=== PATIENT | female | born 1995 | race Caucasian/White ===

== ENCOUNTER 2024-10-19 13:17 | Emergency (ER) | payer BC, MEDICAID ==
[2024-10-19 14:12] VITALS: BP 120/81; PULSE 87
== END 2024-10-19 14:01 | disposition home or self-care (01) ==
LOC: KA.ED 13:17
DX: M19.041 Primary osteoarthritis, right hand (principal); G61.0 Guillain-Barre syndrome; Z86.69 Personal history of other diseases of the nervous system and sense organs; Z88.1 Allergy status to other antibiotic agents; Z88.5 Allergy status to narcotic agent; Z88.8 Allergy status to other drugs, medicaments and biological substances; Z91.030 Bee allergy status; Z79.899 Other long term (current) drug therapy; Z90.49 Acquired absence of other specified parts of digestive tract
CPT/HCPCS: 73130-RT; 99283; 99284

== ENCOUNTER 2024-10-31 11:39 | Emergency (ER) | payer BC, MEDICAID ==
[2024-10-31] MEDS ORDERED: Sodium Chloride 0.9% 10 ML Syringe FLUSH PRN (12:00)
[2024-10-31 12:19] LABS: BASOPHILS ABSOLUTE AUTO 0.05 10^3/uL (0.00-0.10); BASOPHILS PERCENT AUTO 0.6 % (0.0-1.0); EOSINOPHILS ABSOLUTE AUTO 0.18 10^3/uL (0.10-0.30); EOSINOPHILS PERCENT AUTO 2.1 % (1.0-3.0); HEMATOCRIT 45.3 % (37.0-47.0); HEMOGLOBIN 14.8 g/dL (12.0-16.0); IMMATURE GRAN ABSOLUTE AUTO 0.07 10^3/uL (0.00-0.04); IMMATURE GRAN PERCENT AUTO 0.8 % (0.0-0.4); LYMPHOCYTES ABSOLUTE AUTO 3.54 10^3/uL (1.00-4.00); MEAN CORPUSCULAR HEMOGLOBIN 26.9 pg (27.0-31.0); MEAN CORPUSCULAR HGB CONC 32.7 g/dL (32.0-36.0); MEAN CORPUSCULAR VOLUME 82.4 fL (82.0-92.0); MEAN PLATELET VOLUME 10.7 fL (7.4-10.4); MONOCYTES ABSOLUTE AUTO 0.71 10^3/uL (0.10-0.80); MONOCYTES PERCENT AUTO 8.2 % (2.0-8.0); NEUTROPHILS ABSOLUTE AUTO 4.09 10^3/uL (2.50-7.00); NEUTROPHILS PERCENT AUTO 47.3 % (50.0-70.0); PLATELET COUNT,PLT 213 10^3/uL (150-400); RED CELL DISTRIBUTION WIDTH 13.8 % (11.5-14.5); WHITE BLOOD CELL COUNT,WBC 8.64 10^3/uL (5.00-10.00)
[2024-10-31 12:29] LABS: APPEARANCE,URINE SLIGHTLY CLOUDY (CLEAR); BILIRUBIN,URINE NEGATIVE (NEGATIVE); COLOR,URINE YELLOW (YELLOW); GLUCOSE,URINE NEGATIVE (NEGATIVE); KETONES,URINE NEGATIVE (NEGATIVE); LEUKOCYTE ESTERASE,URINE TRACE (NEGATIVE); NITRITE,URINE POSITIVE (NEGATIVE); OCCULT BLOOD,URINE NEGATIVE (NEGATIVE); PH,URINE 6.5 (5.0-9.0); PROTEIN,URINE NEGATIVE (NEGATIVE); UROBILINOGEN,URINE 0.2 E.U./dL (0.2-1.0)
[2024-10-31 12:35] LABS: ALBUMIN 3.68 g/dL (3.40-5.00); ANION GAP 12.7 mmol/L (5-15); BILIRUBIN TOTAL 0.4 mg/dL (0.2-1.0); C-REACTIVE PROTEIN 2.8 mg/dL (0.00-0.50); CALCIUM 9.4 mg/dL (8.7-10.3); CREATININE 0.89 mg/dL (0.51-1.17); EST CRCL DRUG DOSING (CG) 90.7 mL/min; POTASSIUM,K 4.7 mmol/L (3.5-5.1)
[2024-10-31 12:35] LABS: BACTERIA,URINE MODERATE /HPF (NONE TO FEW); EPITHELIAL CELLS,URINE FEW /LPF; RBC,URINE 0-5 /HPF (0-5); WBC,URINE 20-30 /HPF (0-5)
[2024-10-31] MEDS: Sodium Chloride 0.9% 1,000 ML IV ONE (12:53)
[2024-10-31] MEDS: Metoclopramide 10 MG Tab PO ONE (13:18)
[2024-10-31] MEDS: Sulfamethoxazole/Trimethoprim 800-160 MG Tab PO ONE (13:18)
[2024-10-31 13:54] VITALS: BP 120/75; PULSE 94
[2024-10-31] MEDS ORDERED: Sulfamethoxazole/Trimethoprim 800-160 MG Tab PO ONE (13:58)
== END 2024-10-31 14:15 | disposition home or self-care (01) ==
LOC: KA.ED 11:39
DX: N30.00 Acute cystitis without hematuria (principal); Z87.19 Personal history of other diseases of the digestive system; Z86.16 Personal history of COVID-19; Z90.49 Acquired absence of other specified parts of digestive tract; Z79.899 Other long term (current) drug therapy; Z88.5 Allergy status to narcotic agent; Z91.030 Bee allergy status; Z88.8 Allergy status to other drugs, medicaments and biological substances; Z88.1 Allergy status to other antibiotic agents
CPT/HCPCS: 36415; 74177; 80053; 81001; 82150; 83605; 83690; 85025; 86140; 87086; 87088; 99284; A9270-GY; J7030

== ENCOUNTER 2024-11-16 08:42 | Day surgery (SDC) | payer BC, MEDICAID ==
[2024-11-16] MEDS ORDERED: Sodium Chloride 0.9% 10 ML Syringe FLUSH PRN (09:00)
[2024-11-16] MEDS: Lactated Ringers 1,000 ML IV SCH (09:14)
[2024-11-16] MEDS ORDERED: Midazolam 1 MG/ML 2 ML SDV ONE (09:36)
[2024-11-16] MEDS ORDERED: Propofol 200 MG/20 ML SDV ONE (09:36)
[2024-11-16 13:12] VITALS: BP 112/66; PULSE 87
== END 2024-11-16 11:58 | disposition home or self-care (01) ==
LOC: KA.SDS 08:42
PROVIDERS: ATTEND Family Medicine
DX: K64.8 Other hemorrhoids (principal); Z91.030 Bee allergy status; Z88.5 Allergy status to narcotic agent; Z88.8 Allergy status to other drugs, medicaments and biological substances
CPT/HCPCS: 00811; 81025; J2250; J2704; J7120

== ENCOUNTER 2024-12-20 21:42 | Emergency (ER) | payer BC, MEDICAID ==
[2024-12-20] MEDS ORDERED: Sodium Chloride 0.9% 10 ML Syringe FLUSH PRN (21:56)
[2024-12-20] MEDS: Sodium Chloride 0.9% 1,000 ML IV ONE (22:11)
[2024-12-20] MEDS: Promethazine 25 MG in Sodium Chloride 0.9% 100 ML IV ONE (22:12)
[2024-12-20 22:17] LABS: BASOPHILS ABSOLUTE AUTO 0.04 10^3/uL (0.00-0.10); BASOPHILS PERCENT AUTO 0.3 % (0.0-1.0); EOSINOPHILS ABSOLUTE AUTO 0.34 10^3/uL (0.10-0.30); EOSINOPHILS PERCENT AUTO 2.7 % (1.0-3.0); HEMATOCRIT 40.9 % (37.0-47.0); HEMOGLOBIN 13.7 g/dL (12.0-16.0); IMMATURE GRAN ABSOLUTE AUTO 0.06 10^3/uL (0.00-0.04); IMMATURE GRAN PERCENT AUTO 0.5 % (0.0-0.4); LYMPHOCYTES ABSOLUTE AUTO 3.53 10^3/uL (1.00-4.00); LYMPHOCYTES PERCENT AUTO 28.5 % (20.0-40.0); MEAN CORPUSCULAR HEMOGLOBIN 27.2 pg (27.0-31.0); MEAN CORPUSCULAR HGB CONC 33.5 g/dL (32.0-36.0); MEAN CORPUSCULAR VOLUME 81.2 fL (82.0-92.0); MEAN PLATELET VOLUME 9.5 fL (7.4-10.4); MONOCYTES ABSOLUTE AUTO 1.07 10^3/uL (0.10-0.80); MONOCYTES PERCENT AUTO 8.6 % (2.0-8.0); NEUTROPHILS ABSOLUTE AUTO 7.34 10^3/uL (2.50-7.00); NEUTROPHILS PERCENT AUTO 59.4 % (50.0-70.0); PLATELET COUNT,PLT 303 10^3/uL (150-400); RED BLOOD CELL COUNT 5.04 10^6/uL (3.80-5.50); RED CELL DISTRIBUTION WIDTH 13.8 % (11.5-14.5); WHITE BLOOD CELL COUNT,WBC 12.38 10^3/uL (5.00-10.00)
[2024-12-20 22:44] LABS: ALANINE AMINOTRANSFERASE,ALT 28 U/L (14-63); ALBUMIN 3.26 g/dL (3.40-5.00); ALKALINE PHOSPHATASE 83 U/L (46-116); AMYLASE 24 U/L (25-125); ANION GAP 13.3 mmol/L (5-15); ASPARTATE AMNIOTRANSFERASE,AST 18 U/L (15-37); BILIRUBIN TOTAL 0.2 mg/dL (0.2-1.0); BLOOD UREA NITROGEN,BUN 12 mg/dL (7-18); CALCIUM 9.2 mg/dL (8.7-10.3); CARBON DIOXIDE,CO2 29.4 mmol/L (21.0-32.0); CHLORIDE,CL 102 mmol/L (98-107); CREATININE 0.84 mg/dL (0.51-1.17); ESTIMATED GFR 96 mL/min (>=60); GLUCOSE RANDOM 94 mg/dL (70-140); LIPASE 45 U/L (16-77); POTASSIUM,K 3.7 mmol/L (3.5-5.1); PROTEIN TOTAL,TP 7.2 g/dL (6.4-8.2); SODIUM,NA 141 mmol/L (136-145)
[2024-12-20] MEDS: Sodium Chloride 0.9% 50 ML IV ONE (22:58)
[2024-12-20] MEDS: Iopamidol 755 Mg/ML 100 ML Bottle IV ONE (22:58)
[2024-12-20 23:02] LABS: APPEARANCE,URINE SLIGHTLY CLOUDY (CLEAR); BILIRUBIN,URINE NEGATIVE (NEGATIVE); COLOR,URINE YELLOW (YELLOW); GLUCOSE,URINE NEGATIVE (NEGATIVE); KETONES,URINE NEGATIVE (NEGATIVE); LEUKOCYTE ESTERASE,URINE SMALL (NEGATIVE); NITRITE,URINE NEGATIVE (NEGATIVE); OCCULT BLOOD,URINE NEGATIVE (NEGATIVE); PROTEIN,URINE NEGATIVE (NEGATIVE); UROBILINOGEN,URINE 0.2 E.U./dL (0.2-1.0)
[2024-12-20 23:09] LABS: BACTERIA,URINE FEW /HPF (NONE TO FEW); EPITHELIAL CELLS,URINE FEW /LPF; RBC,URINE 0-5 /HPF (0-5)
[2024-12-20 23:50] VITALS: BP 95/52; PULSE 98
[2024-12-20] MEDS: Promethazine 25 MG Tab PO PRN (23:54)
== END 2024-12-20 23:55 | disposition home or self-care (01) ==
LOC: KA.ED 21:42
DX: K76.0 Fatty (change of) liver, not elsewhere classified (principal); R11.2 Nausea with vomiting, unspecified; R19.7 Diarrhea, unspecified; J45.909 Unspecified asthma, uncomplicated; Z88.5 Allergy status to narcotic agent; Z91.030 Bee allergy status; Z88.8 Allergy status to other drugs, medicaments and biological substances; Z88.1 Allergy status to other antibiotic agents; Z79.51 Long term (current) use of inhaled steroids; Z79.899 Other long term (current) drug therapy; Z86.16 Personal history of COVID-19
CPT/HCPCS: 71046; 74177; 80053; 81001; 82150; 83605; 83690; 84484; 85025; 87086; 96361; 96365; 99284; 99284-25; J2550; J7030; Q0169; Q9967

== ENCOUNTER 2025-03-03 22:28 | Emergency (ER) | payer MEDICAID ==
[2025-03-03 23:56] LABS: APPEARANCE,URINE SLIGHTLY CLOUDY (CLEAR); BILIRUBIN,URINE NEGATIVE (NEGATIVE); COLOR,URINE YELLOW (YELLOW); GLUCOSE,URINE NEGATIVE (NEGATIVE); KETONES,URINE NEGATIVE (NEGATIVE); LEUKOCYTE ESTERASE,URINE MODERATE (NEGATIVE); NITRITE,URINE NEGATIVE (NEGATIVE); OCCULT BLOOD,URINE NEGATIVE (NEGATIVE); PH,URINE 6.5 (5.0-9.0); PROTEIN,URINE TRACE mg/dL (NEGATIVE); UROBILINOGEN,URINE 0.2 E.U./dL (0.2-1.0)
[2025-03-03 23:57] LABS: BACTERIA,URINE FEW /HPF (NONE TO FEW); EPITHELIAL CELLS,URINE MODERATE /LPF; RBC,URINE 0-5 /HPF (0-5); WBC,URINE 20-30 /HPF (0-5)
[2025-03-04] MEDS: Ketorolac 30 MG/ML SDV IVPUSH ONE (00:06)
[2025-03-04] MEDS: methylPREDNISolone Sodium Succinate 125 MG/2 ML SDV IVPUSH ONE (00:09)
[2025-03-04] MEDS: LORazepam 2 MG/ML SDV IVPUSH ONE (00:14)
[2025-03-04 01:05] VITALS: BP 113/56; PULSE 82
== END 2025-03-04 01:05 | disposition home or self-care (01) ==
LOC: KA.ED 22:28
DX: M54.12 Radiculopathy, cervical region (principal); J45.909 Unspecified asthma, uncomplicated; K21.9 Gastro-esophageal reflux disease without esophagitis; Z86.16 Personal history of COVID-19; Z88.5 Allergy status to narcotic agent; Z91.030 Bee allergy status; Z91.018 Allergy to other foods; Z88.8 Allergy status to other drugs, medicaments and biological substances; Z79.51 Long term (current) use of inhaled steroids; Z79.899 Other long term (current) drug therapy
CPT/HCPCS: 81001; 81025; 87086; 87088; 96365; 96375; 99283-25; 99284; J1885; J2800; J2919

== ENCOUNTER 2025-03-30 21:05 | Emergency (ER) | payer MEDICAID ==
[2025-03-30 21:56] LABS: BASOPHILS ABSOLUTE AUTO 0.04 10^3/uL (0.00-0.10); BASOPHILS PERCENT AUTO 0.4 % (0.0-1.0); EOSINOPHILS ABSOLUTE AUTO 0.25 10^3/uL (0.10-0.30); EOSINOPHILS PERCENT AUTO 2.8 % (1.0-3.0); IMMATURE GRAN ABSOLUTE AUTO 0.12 10^3/uL (0.00-0.04); IMMATURE GRAN PERCENT AUTO 1.3 % (0.0-0.4); LYMPHOCYTES ABSOLUTE AUTO 2.15 10^3/uL (1.00-4.00); LYMPHOCYTES PERCENT AUTO 24.1 % (20.0-40.0); MEAN PLATELET VOLUME 9.5 fL (7.4-10.4); MONOCYTES ABSOLUTE AUTO 1.36 10^3/uL (0.10-0.80); MONOCYTES PERCENT AUTO 15.2 % (2.0-8.0); NEUTROPHILS ABSOLUTE AUTO 5.01 10^3/uL (2.50-7.00); NEUTROPHILS PERCENT AUTO 56.2 % (50.0-70.0); PLATELET COUNT,PLT 263 10^3/uL (150-400); RED BLOOD CELL COUNT 4.75 10^6/uL (3.80-5.50); RED CELL DISTRIBUTION WIDTH 13.7 % (11.5-14.5); WHITE BLOOD CELL COUNT,WBC 8.93 10^3/uL (5.00-10.00)
[2025-03-30 22:21] LABS: ALANINE AMINOTRANSFERASE,ALT 33 U/L (14-63); ASPARTATE AMNIOTRANSFERASE,AST 20 U/L (15-37); BILIRUBIN TOTAL 0.3 mg/dL (0.2-1.0); BLOOD UREA NITROGEN,BUN 7 mg/dL (7-18); CARBON DIOXIDE,CO2 25.8 mmol/L (21.0-32.0); CHLORIDE,CL 103 mmol/L (98-107); CREATININE 0.91 mg/dL (0.51-1.17); GLUCOSE RANDOM 125 mg/dL (70-140); POTASSIUM,K 3.8 mmol/L (3.5-5.1); PROTEIN TOTAL,TP 7.2 g/dL (6.4-8.2); SODIUM,NA 140 mmol/L (136-145)
[2025-03-30 22:22] LABS: ESTIMATED GFR 88 mL/min (>=60)
[2025-03-30 22:30] VITALS: BP 112/64; PULSE 112
== END 2025-03-30 22:55 | disposition home or self-care (01) ==
LOC: KA.ED 21:05
DX: R50.9 Fever, unspecified (principal); Z90.710 Acquired absence of both cervix and uterus; E66.9 Obesity, unspecified; Z88.5 Allergy status to narcotic agent; Z91.030 Bee allergy status; Z88.1 Allergy status to other antibiotic agents; Z88.8 Allergy status to other drugs, medicaments and biological substances; Z79.899 Other long term (current) drug therapy; Z86.16 Personal history of COVID-19; Z90.49 Acquired absence of other specified parts of digestive tract; Z68.42 Body mass index [BMI] 45.0-49.9, adult
CPT/HCPCS: 36415; 80053; 83605; 85025; 86140; 99284

== ENCOUNTER 2025-04-01 13:25 | Emergency (ER) | payer MEDICAID ==
[2025-04-01 14:14] LABS: BASOPHILS ABSOLUTE AUTO 0.05 10^3/uL (0.00-0.10); BASOPHILS PERCENT AUTO 0.4 % (0.0-1.0); EOSINOPHILS ABSOLUTE AUTO 0.06 10^3/uL (0.10-0.30); EOSINOPHILS PERCENT AUTO 0.5 % (1.0-3.0); IMMATURE GRAN ABSOLUTE AUTO 0.11 10^3/uL (0.00-0.04); IMMATURE GRAN PERCENT AUTO 0.8 % (0.0-0.4); LYMPHOCYTES ABSOLUTE AUTO 2.79 10^3/uL (1.00-4.00); LYMPHOCYTES PERCENT AUTO 21.2 % (20.0-40.0); MEAN PLATELET VOLUME 9.6 fL (7.4-10.4); MONOCYTES ABSOLUTE AUTO 1.92 10^3/uL (0.10-0.80); MONOCYTES PERCENT AUTO 14.6 % (2.0-8.0); NEUTROPHILS ABSOLUTE AUTO 8.26 10^3/uL (2.50-7.00); NEUTROPHILS PERCENT AUTO 62.5 % (50.0-70.0); PLATELET COUNT,PLT 276 10^3/uL (150-400); RED BLOOD CELL COUNT 4.86 10^6/uL (3.80-5.50); RED CELL DISTRIBUTION WIDTH 14.2 % (11.5-14.5); WHITE BLOOD CELL COUNT,WBC 13.19 10^3/uL (5.00-10.00)
[2025-04-01] MEDS: Iopamidol 755 Mg/ML 100 ML Bottle IV ONE (16:08)
[2025-04-01] MEDS: Ondansetron 4 MG/2 ML SDV IVPUSH ONE (16:24)
[2025-04-01] MEDS: Ondansetron 4 MG/2 ML SDV ONE ×2 (16:39)
[2025-04-01 18:47] VITALS: BP 106/65; PULSE 110
[2025-04-02 08:01] LABS: BLOOD UREA NITROGEN,BUN 8.0 mg/dL (6-25); CREATININE 0.96 mg/dL (0.51-1.17); EST CRCL DRUG DOSING (CG) 84.08 mL/min; ESTIMATED GFR 82.0 mL/min (>=60); GLUCOSE RANDOM 93.0 mg/dL (70-140)
[2025-04-02 08:02] LABS: ALANINE AMINOTRANSFERASE,ALT 22.0 U/L (12-78); ASPARTATE AMNIOTRANSFERASE,AST 27.0 U/L (15-37); BILIRUBIN TOTAL 0.4 mg/dL (0.2-1.0); PROTEIN TOTAL,TP 7.9 g/dL (6.4-8.2)
[2025-04-02 08:04] LABS: CARBON DIOXIDE,CO2 22.0 mmol/L (21.0-32.0); CHLORIDE,CL 102.0 mmol/L (98-107); POTASSIUM,K 4.0 mmol/L (3.5-5.1); SODIUM,NA 136.0 mmol/L (136-145)
== END 2025-04-01 18:30 | disposition home or self-care (01) ==
LOC: KA.ED 13:25
DX: R19.7 Diarrhea, unspecified (principal); R11.10 Vomiting, unspecified; R50.9 Fever, unspecified; K21.9 Gastro-esophageal reflux disease without esophagitis; E66.9 Obesity, unspecified; Z86.16 Personal history of COVID-19; Z79.899 Other long term (current) drug therapy; Z91.030 Bee allergy status; Z88.8 Allergy status to other drugs, medicaments and biological substances; Z91.018 Allergy to other foods; Z88.5 Allergy status to narcotic agent; Z68.42 Body mass index [BMI] 45.0-49.9, adult
CPT/HCPCS: 36415; 72193; 80053; 83605; 85025; 86140; 87324; 87449; 87651; 96374; 99284-25; A9270-GY; J2405; Q9967

== ENCOUNTER 2025-04-03 09:40 | Emergency (ER) | payer MEDICAID ==
[2025-04-03 09:53] VITALS: PULSE 99
[2025-04-03 11:04] LABS: BASOPHILS ABSOLUTE AUTO 0.04 10^3/uL (0.00-0.10); BASOPHILS PERCENT AUTO 0.5 % (0.0-1.0); EOSINOPHILS ABSOLUTE AUTO 0.19 10^3/uL (0.10-0.30); EOSINOPHILS PERCENT AUTO 2.5 % (1.0-3.0); IMMATURE GRAN ABSOLUTE AUTO 0.09 10^3/uL (0.00-0.04); IMMATURE GRAN PERCENT AUTO 1.2 % (0.0-0.4); LYMPHOCYTES ABSOLUTE AUTO 2.31 10^3/uL (1.00-4.00); LYMPHOCYTES PERCENT AUTO 30.9 % (20.0-40.0); MEAN PLATELET VOLUME 9.2 fL (7.4-10.4); MONOCYTES ABSOLUTE AUTO 1.03 10^3/uL (0.10-0.80); MONOCYTES PERCENT AUTO 13.8 % (2.0-8.0); NEUTROPHILS ABSOLUTE AUTO 3.82 10^3/uL (2.50-7.00); NEUTROPHILS PERCENT AUTO 51.1 % (50.0-70.0); PLATELET COUNT,PLT 283 10^3/uL (150-400); RED BLOOD CELL COUNT 4.77 10^6/uL (3.80-5.50); RED CELL DISTRIBUTION WIDTH 14.0 % (11.5-14.5); WHITE BLOOD CELL COUNT,WBC 7.48 10^3/uL (5.00-10.00)
[2025-04-03 11:39] VITALS: BP 99/71
[2025-04-06 18:06] LABS: EB CAP IGG >750.0 U/mL (<=17.9); EB CAP IGM 26.6 U/mL (<=35.9); EB EA-D AG 25.3 U/mL (<=8.9); EB NUCLEAR AG >600.0 U/mL (<=17.9)
== END 2025-04-03 11:42 | disposition home or self-care (01) ==
LOC: KA.ED 09:40
DX: J03.90 Acute tonsillitis, unspecified (principal); E66.9 Obesity, unspecified; J45.909 Unspecified asthma, uncomplicated; Z79.899 Other long term (current) drug therapy; Z88.8 Allergy status to other drugs, medicaments and biological substances; Z91.030 Bee allergy status; Z91.048 Other nonmedicinal substance allergy status; Z86.16 Personal history of COVID-19; Z90.49 Acquired absence of other specified parts of digestive tract; Z68.42 Body mass index [BMI] 45.0-49.9, adult
CPT/HCPCS: 36415; 85025; 86308; 86663; 86664; 86665; 99283; 99284